=== PATIENT | female | born 1955 | race Caucasian/White ===

== ENCOUNTER 2023-06-08 13:50 | Outpatient (AMB) | payer MEDICARE, OTHER, SELFPAY ==
[2023-06-08 14:00] VITALS: BP 120/68; PULSE 96; RESP 14; O2SAT 88; BMI 37.4
--- NOTE | 2023-06-08 14:00 | MHC.OFFVIS ---
Intake Vital Signs 06/08/23 14:00 Height 5 ft 5 in Weight 225 lb BMI 37.4 BP 120/68 Blood Pressure Location Rt brachial Position Sitting Respiration 14 Pulse 96 Pulse Source Pulse Oximeter Pulse Oximetry (%) 88 L Oxygen Delivery Method Room Air Intake Visit Reasons: Chronic Lumbar Back Pain Allergies ciprofloxacin Adverse Reaction (Severe, Verified 06/08/23 14:04) Depression pravastatin Adverse Reaction (Severe, Verified 06/08/23 14:04) Muscle cramps Medication List - Last Reconciled 06/08/23 by Ruth Parmar LPN citalopram 20 mg PO DAILY dulaglutide (Trulicity) 1.5 mg subcut QWEEK levothyroxine 75 mcg PO DAILY lisinopril 5 mg PO DAILY metformin ER 1,000 mg PO DAILY omeprazole 20 mg PO BID rosuvastatin 5 mg PO DAILY HPI Chronic Lumbar Back Pain HPI Details 68-year-old female presenting today for a chronic lumbar back pain. The patient started experiencing low back pain while she was in [place] recently. She described her pain as an ache in the axial low back without radiation. It is rated at 8/10 in intensity. It is worse with weather changes and movements but heat makes it feel better. She has pain in her back when walking, which is alleviated by sitting. Leaning forward helps the pain. She often finds herself leaning on the shopping cart while grocery shopping. She has tightness in her hip. She denies pain in her leg when walking. She had an MRI scan that revealed significant degeneration, spinal stenosis, spondylolisthesis and foraminal impingement especially at L4-5. She has tried multiple drains of physical therapy in the past without any significant benefit. She has a history of diabetes and takes Trulicity and metformin. She reports her diabetes is relatively well controlled. 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 Lumbar facet arthropathy Mild persistent asthma with acute exacerbation Pericarditis Spinal stenosis of lumbar region without neurogenic claudication Spondylolisthesis at L4-L5 level Type 2 diabetes mellitus without complication, without long-term current use of insulin Review of Systems Const All systems reviewed & are unremarkable except as noted in HPI and below Physical Exam Vital Signs: Last Vital Signs Pulse 96 06/08/23 14:00 Resp 14 06/08/23 14:00 BP 120/68 06/08/23 14:00 Pulse Ox 88 L 06/08/23 14:00 Oxygen Delivery Method Room Air 06/08/23 14:00 BMI result Body Mass Index 37.4 General: Appears afebrile. Alert and oriented. Mood and affect appropriate. Follows and participates in conversation appropriately. Respiratory effort is unlabored. Able to transition from sit to stand unassisted. Ambulates with bilaterally normal heel strike and toe off. Results Reviewed Results Reviewed: 03/05/23: MRI OF LUMBAR SPINE My review of imaging reveals mild spondylolisthesis at L4-5 with significant ligamentum flavum hypertrophy causing central and foraminal stenosis. There is also significant facet arthropathy as well as fatty infiltration of the multifidus muscle. Assessment & Plan Assessment & Plan (1) Spinal stenosis, lumbar region with neurogenic claudication: Code(s): M48.062 - Spinal stenosis, lumbar region with neurogenic claudication (2) Lumbar facet arthropathy: Code(s): M47.816 - Spondylosis without myelopathy or radiculopathy, lumbar region Plan Discussed minimally invasive lumbar decompression vs trial of FADI. Given the severity of her spinal stenosis, I doubt she would get much long-term relief from epidural steroids. Instead, she is at high risk of hyperglycemia related complications given pre-existing DM. I discussed proceeding with minimally invasive lumbar decompression for her moderate spinal stenosis with neurogenic claudication secondary to ligamentum flavum hypertrophy. I discussed the procedure with the patient and she is amenable to proceeding. Given her significant facet arthropathy and multifidus atrophy, I also counseled her that she may need facet interventions following the MILD procedure for any residual facetogenic pain. Justification for interventional therapy: ? Patient with average pain > 6/10 ? Patient has exhausted conservative therapy including multiple rounds of physical therapy Scribed for Dr. Menendez by Gigi Gutierrez, medical research scientist, on 06/08/2023. I, Dr. Menendez, have personally reviewed and agree with the information entered by the scribe. Coding Level of Care Code New Pt Level 4 (31753) Diagnoses Spinal stenosis, lumbar region with neurogenic claudication M48.062 Lumbar facet arthropathy M47.816
== END 2023-06-08 14:16 | disposition home or self-care (01) ==
PROVIDERS: PCP Family Medicine; Visit Provider Internal Medicine
DX: M48.062 Spinal stenosis, lumbar region with neurogenic claudication (principal); M47.816 Spondylosis without myelopathy or radiculopathy, lumbar region
CPT/HCPCS: 99204

== ENCOUNTER → 2023-06-08 13:50 | Outpatient (BNVA) | payer MEDICARE, OTHER, SELFPAY | PROVIDERS: PCP Family Medicine; Visit Provider Internal Medicine | DX: M48.062 Spinal stenosis, lumbar region with neurogenic claudication (principal); M47.816 Spondylosis without myelopathy or radiculopathy, lumbar region | CPT/HCPCS: 99202 ==

== ENCOUNTER 2024-04-27 06:21 | Day surgery (SDC) | payer MEDICARE, OTHER, SELFPAY ==
[2024-04-27] VITALS (15 sets, daily range): BP systolic 128–169; BP diastolic 63–87; PULSE 71–91; RESP 11–19; TEMP 36.2–36.6; O2SAT 89–99; BMI 34.4
--- NOTE | ~2024-04-27 | FL_ITS ---
EXAMINATION: XR FLUOROSCOPY WITH IMAGES CLINICAL INFORMATION: L4-L5 mild. COMPARISON: None available. TECHNIQUE: Fluoroscopy Supervised By: Dr. Menendez. Fluoroscopy Time: 4.3 min. Cumulative Dose: 150 mGy. DAP: 5.00 Gycm2. Images: 3. FINDINGS: Intraoperative fluoroscopy and spot films were performed during a procedure in the OR. A cannula is seen overlying the lower lumbosacral spine in the midline. Exact site is difficult to ascertain secondary to marked coning of the images. Please see Dr. Menendez' report for complete details. FL/FL guidance in OR IMPRESSION: Intraoperative fluoroscopy and spot films were obtained. Please see Dr. Menendez' report for complete details.
[2024-04-27 06:53] LABS: Glucose, Whole Blood 195 mg/dL (60-115)
[2024-04-27] MEDS: oxyCODONE HCl Immed Release 5 MG TABLET PO ×2 (07:06→08:46)
[2024-04-27] MEDS: Lactated Ringers 1,000 ML 80 ML IVCONT (07:06)
--- NOTE | 2024-04-27 07:07 | PC.NURSE ---
patient c/o 10/10 pain to left foot, slightly red. patient able to put light weight on left foot to transfer to bed. patient stated I did not take pain medication in over 24 hours . [employer] [address] Dr[address] Menendez. Orders received for Oxycodone Immediate Release 5mg PO and given.
--- NOTE | 2024-04-27 07:28 | P.CONAN_ITS ---
ON LICENSE OF [facility] Active Problems Active Problems: All Active Problems Lumbar facet arthropathy (Acute) Spinal stenosis, lumbar region with neurogenic claudication (Acute) Past Medical History Medical History (Updated 06/08/23 @ 14:32 by James Menendez MD) Type 2 diabetes mellitus without complication, without long-term current use of insulin Class 2 obesity due to excess calories with body mass index (BMI) of 38.0 to 38. 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 Hyperlipidemia Gastroesophageal reflux disease without esophagitis Depressive disorder Deafness Binge eating disorder Asplenia Allergic rhinitis due to pollen Lumbar facet arthropathy Chest pain in adult Coronary artery calcification Pericarditis Hearing impaired ASCUS of cervix with negative high risk HPV Chronic pain of both knees Spondylolisthesis at L4-L5 level Spinal stenosis of lumbar region without neurogenic claudication Family History Family history of problems with anesthesia: No Surgical History History of Problems with Anesthesia: No Social History Social History Patient Tobacco Use Status: Never used Tobacco Second Hand Smoke Exposure: No Use of substances other than those prescribed or required for medical reasons: No Are you DNR?: No Advance Directives: No Advance Directives Information Provided: Yes Advance Directives on File: No Meds Allergies Allergy/AdvReac Type Severity Reaction Status Date / Time ciprofloxacin AdvReac Severe Depression Verified 06/08/23 14:04 pravastatin AdvReac Severe Muscle Verified 06/08/23 14:04 cramps Active Medications: Current Medications Lactated Ringer's (Lr) 1,000 mls @ 80 mls/hr IVCONT .[id number] CHERI Last Admin: 04/27/24 07:06 Dose: 80 mls/hr Home Medications ?Medication ?Instructions ?Recorded ?Confirmed ?Last Taken ?Type citalopram 20 mg tablet 20 mg PO DAILY 06/08/23 04/27/24 Unknown History dulaglutide 1.5 mg/0.5 mL 1.5 mg subcut QWEEK 06/08/23 04/27/24 Unknown History subcutaneous pen injector (Trulicity) levothyroxine 75 mcg capsule 75 mcg PO DAILY 06/08/23 04/27/24 Unknown History lisinopril 5 mg tablet 5 mg PO DAILY 06/08/23 04/27/24 Unknown History metformin 500 mg tablet,extended 1,000 mg PO DAILY 06/08/23 04/27/24 Unknown History release 24 hr omeprazole 20 mg capsule,delayed 20 mg PO BID 06/08/23 04/27/24 Unknown History release rosuvastatin 5 mg tablet 5 mg PO DAILY 06/08/23 04/27/24 Unknown History Exam Height,Weight and Vital Signs: Height 5 ft 5 in Weight 93.894 kg Last Vital Signs Temp 97.8 F 04/27/24 06:50 Pulse 71 04/27/24 06:50 Resp 18 04/27/24 06:50 BP 145/81 H 04/27/24 06:50 Pulse Ox 99 04/27/24 06:50 O2 Del Method Room Air 04/27/24 06:50 Pertinent Lab Results Pertinent Lab Results: Laboratory Tests 04/27/24 06:49 POC Glucose 195 H Airway Mallampati Class: III TM Dist: <=3cm Loose/Missing/Broken Teeth: No Heart: rrr Lungs: cta Assessment and Plan Assessment Anesthesia Assessment: Chart Reviewed Final Anesthetic Review Family History of Problems with Anesthesia: No History of Problems with Anesthesia: No NPO: Yes ASA Class: III Final Preanesthetic Review: No Changes in Pt Med Stat, Meds/Allgs Chart Reviewed, Consent Obtained/Reviewed and Anes Risks/Benef Reviewed Patient Risk: Intermediate Procedure Risk: Intermediate Anesthetic Plan Anesthetic Plan: MAC: Disposition: Standard PACU
--- NOTE | 2024-04-27 07:38 | MHC.SHP ---
Pre-Procedural Eval Section A - 24 Hr Update-Section A only Date of Service: 04/27/24 The patient is an INPATIENT: No Changes since office visit: Yes Patient answered all questions The patient has been examined within 24 hours of the surgical procedure. The History & Physical has been completed within 30 days and I have reviewed it.: No Section B - Complete if H&P > 30 days Chief Complaint: Spinal stenosis, lumbar region with neurogenic cla Relevant Family History (Specify if Yes): No Relevant Social History: None Present Medications: see Short Stay Collaborative assessment Medical History: No relevant PMH History of Previous Operations: No relevant previous surgery Allergies: Allergies Allergy/AdvReac Type Severity Reaction Status Date / Time ciprofloxacin AdvReac Severe Depression Verified 06/08/23 14:04 pravastatin AdvReac Severe Muscle Verified 06/08/23 14:04 cramps Review of Systems Sugical H&P ROS: Negative: Constitution, Cardiovascular and Respiratory Exam Surgical H&P Exam: Significant Findings: Extremities (TTP left foot) Plan Diagnosis/Plan: Unchanged I have reviewed the history and physical and performed a pertinent physical examination on my patient. No changes have occurred unless specified. Time Spent With Patient Time: Total time managing care of this patient today ____ minutes.
--- NOTE | 2024-04-27 08:45 | P.BOP_ITS ---
Brief Operative Note Date of Service: 04/27/24 Pre-op diagnosis: Spinal stenosis with neurogenic claudication Post-op diagnosis: same Procedure: Minimally invasive lumbar decompression at L4-5 Implants: None Surgeon: James Menendez MD Anesthesia: MAC Was an Timekeeping Supervisor used for this Procedure?: No Estimated blood loss (mL): 2 Pathology: none sent Condition: stable Disposition: PACU
--- NOTE | 2024-04-27 08:46 | W.PM.OPN ---
Operative Note Operative Note Date of Service: 04/27/24 Narrative: Minimally Invasive Lumbar Decompression, Bilateral, L-4/5 After informed consent, patient was brought to the operating room. The patient was placed in the prone position in the fluoroscopy suite with blankets (bolster) under the hips to assist with reversing lordosis of the spine. Following IV sedation and 2 g cefazolin administration, the patient was prepped and draped in my usual standard fashion. Time-out was performed to confirm site and level of intervention. Ample amounts of local anesthetic were used to anesthetize the skin and deep facial planes after topographical landmarks were identified. Procedural safety barriers were established by utilizing a contralateral oblique (BLANCA) view to visualize the ventral interlaminar line (VILL). Instruments remained posterior to the VILL during the percutaneous lumbar decompression procedure. A small midline incision was made with a sharp scalpel blade, and a trocar with portal was inserted percutaneously under fluoroscopic guidance to contact the lamina indicated. The trocar and portal were tugged to the right side to approach the right interlaminar space first. A bone-sculpting rongeur was inserted to remove adequate amounts of lamina (laminotomy) from the superior surface of the inferior operative lamina site and from the inferior aspect of the lamina above it. The laminotomy created a passage for the tissue sculpting instrument used in debulking the ligamentum flavum. The ligamentum flavum was debulked until diminished returns. A similar procedure was performed on the contralateral side. There were no complications or difficulties noted with these procedures. Upon completion of the procedure, instruments were removed, hemostasis was achieved by direct pressure, and wound closure was performed with 2-0 silk, dermabond and op-site dressing. The patient tolerated the procedure well. Upon transferring the patient to the recovery room, the patient?s vital signs remained stable and without any neurologic deficits. The patient was discharged with instructions to rest, continue with ice, and to demonstrate progressive mobility. The patient was given a follow-up exam time and date along with instructions and contact information for any questions or concerns. The patient is to be followed up in the office for further evaluation and treatment, as deemed appropriate and necessary, and for any concerns regarding the procedure.
[2024-04-27] MEDS: ondansetron HCL 4 MG/2 ML VIAL IVPUSH (08:50)
[2024-04-27] MEDS: fentaNYL citrate/PF 100 MCG/2 ML VIAL 25 MCG IVPUSH (09:04)
[2024-04-27 12:00] LABS: MRSA Nasal PCR NEGATIVE (Negative); SA Nasal PCR POSITIVE (Negative)
== END 2024-04-27 11:55 | disposition home or self-care (01) ==
PROVIDERS: Registered Nurse Emergency; PCP Family Medicine; Visit Provider Internal Medicine
PROC: (CPT 0275T; principal; 2024-04-27 07:30)
DX: M48.062 Spinal stenosis, lumbar region with neurogenic claudication (principal); M43.16 Spondylolisthesis, lumbar region; M47.816 Spondylosis without myelopathy or radiculopathy, lumbar region; G89.29 Other chronic pain; M54.50 Low back pain, unspecified; E11.9 Type 2 diabetes mellitus without complications; I10 Essential (primary) hypertension; E78.5 Hyperlipidemia, unspecified; K21.9 Gastro-esophageal reflux disease without esophagitis; J45.41 Moderate persistent asthma with (acute) exacerbation; E66.9 Obesity, unspecified; Z68.38 Body mass index [BMI] 38.0-38.9, adult; Z79.85 Long-term (current) use of injectable non-insulin antidiabetic drugs; Z79.84 Long term (current) use of oral hypoglycemic drugs; Z79.02 Long term (current) use of antithrombotics/antiplatelets; Z00.6 Encounter for examination for normal comparison and control in clinical research program
CPT/HCPCS: 0275T; 82947; 87640; 87641; A4364; C1889; J0690; J1596; J2250; J2405; J2704; J3010

== ENCOUNTER → 2024-04-27 06:21 | Outpatient (BNV) | payer MEDICARE, OTHER, SELFPAY | PROVIDERS: PCP Family Medicine; Visit Provider Internal Medicine | DX: M48.062 Spinal stenosis, lumbar region with neurogenic claudication (principal); Z00.6 Encounter for examination for normal comparison and control in clinical research program | CPT/HCPCS: 0275T ==

== ENCOUNTER 2024-05-13 10:54 | Outpatient (AMB) | payer MEDICARE, OTHER, SELFPAY ==
--- NOTE | 2024-05-13 10:56 | A.OFFVIS_ITS ---
Vital Signs 3 05/13/24 10:58 Height 5 ft 5 in Weight 214 lb BMI 35.6 BP 148/76 H Blood Pressure Location Lt brachial Position Sitting Respiration 14 Pulse 70 Pulse Source Pulse Oximeter Pulse Oximetry (%) 96 Oxygen Delivery Method Room Air Intake Visit Reasons: s/p MILD L4-L5 04/27/24 Allergies ciprofloxacin Adverse Reaction (Severe, Verified 05/13/24 10:59) Depression pravastatin Adverse Reaction (Severe, Verified 05/13/24 10:59) Muscle cramps Medication List - Last Reconciled 05/13/24 by Ruth Parmar LPN citalopram 20 mg PO DAILY dulaglutide (Trulicity) 1.5 mg subcut QWEEK levothyroxine 75 mcg PO DAILY lisinopril 5 mg PO DAILY metformin ER 1,000 mg PO DAILY omeprazole 20 mg PO BID rosuvastatin 5 mg PO DAILY HPI HPI s/p MILD L4-L5 04/27/24: Details: 69-year-old female who presents today for status post minimally invasive lumbar decompression. She still has pain after the procedure but not as severe as it was before. She reports she is able to walk without difficulty and does lot of work. She had about 60% improvement in her symptom after the procedure. She is able to walk more. 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 Hyperlipidemia Gastroesophageal reflux disease without esophagitis Depressive disorder Deafness Binge eating disorder Asplenia Allergic rhinitis due to pollen Lumbar facet arthropathy Chest pain in adult Coronary artery calcification Pericarditis Hearing impaired ASCUS of cervix with negative high risk HPV Chronic pain of both knees Spondylolisthesis at L4-L5 level Spinal stenosis of lumbar region without neurogenic claudication Social History Patient Tobacco Use Status: Never used Tobacco Second Hand Smoke Exposure: No Review of Systems Const All systems reviewed & are unremarkable except as noted in HPI and below Physical Exam Vital Signs: Last Vital Signs Pulse 70 05/13/24 10:58 Resp 14 05/13/24 10:58 BP 148/76 H 05/13/24 10:58 Pulse Ox 96 05/13/24 10:58 Oxygen Delivery Method Room Air 05/13/24 10:58 BMI result Body Mass Index 35.6 General: Appears afebrile. Alert and oriented. Mood and affect appropriate. Follows and participates in conversation appropriately. Respiratory effort is unlabored. Able to transition from sit to stand unassisted. Ambulates with bilaterally normal heel strike and toe off. Her incision has is well healed and dry. The suture was removed in the office today. Results Reviewed Results Reviewed: 03/05/23: MRI OF LUMBAR SPINE My review of imaging reveals mild spondylolisthesis at L4-5 with significant ligamentum flavum hypertrophy causing central and foraminal stenosis. There is also significant facet arthropathy as well as fatty infiltration of the multifidus muscle. Assessment & Plan Assessment & Plan (1) Spinal stenosis, lumbar region with neurogenic claudication: Code(s): M48.062 - Spinal stenosis, lumbar region with neurogenic claudication Category: Medical Plan I cleared her to remove to return to water exercises for the summer, if for her symptoms of aggravate again, we can try for something else just after the summer. She is cleared to return to pools or a bathing and showering as needed. Scribed for Dr. Menendez by Corinne Hooks, senior medical technologist, on 05/13/2024. I, Dr. Menendez, have personally reviewed and agree with the information entered by the scribe Coding Level of Care Code Est Pt Level 3 (38287) Diagnoses Spinal stenosis, lumbar region with neurogenic claudication M48.062
[2024-05-13 10:58] VITALS: BP 148/76; PULSE 70; RESP 14; O2SAT 96; BMI 35.6
== END 2024-05-13 11:14 | disposition home or self-care (01) ==
PROVIDERS: PCP Family Medicine; Visit Provider Internal Medicine
DX: M48.062 Spinal stenosis, lumbar region with neurogenic claudication (principal)
CPT/HCPCS: 99024

== ENCOUNTER → 2024-05-13 10:54 | Outpatient (BNVA) | payer MEDICARE, OTHER, SELFPAY | PROVIDERS: PCP Family Medicine; Visit Provider Internal Medicine | DX: M48.062 Spinal stenosis, lumbar region with neurogenic claudication (principal) | CPT/HCPCS: 99212 ==